=== PATIENT | female | born 1970 | race Caucasian/White ===

== ENCOUNTER 2016-10-22 15:44 | Observation (INO) | payer OTHER ==
[~2016-10-22] VITALS: Ht 165.1 cm; Wt 88.5 kg
[~2016-10-22 15:44] MED LIST: AMITIZA24 MCG PO; AUGMENTIN TAB875 MG PO; BENTYL20 MG PO; DILTIAZEM ER120 M1 PO; DULERA 200 MCG8.8 GM INH; LEVAQUIN750 MG PO; LIPITOR TAB 1010 MG PO; LISINOPRIL-HCT1 EACH PO; QVAR8.7 G1 INH; SINGULAIR10 MG PO; TESSALON PERLE100 MG PO; ZOFRAN4 MG PO
[2016-10-22 17:56] LABS: HEMOGLOBIN 12.3 gm/dl (12.3-15.3); RED BLOOD COUNT 4.12 M/UL (4.00-5.10); WHITE BLOOD COUNT 11.9 K/UL (4.5-11.0)
[2016-10-22 18:21] LABS: BUN/CREATININE RATIO 12 (0-10)
[2016-10-22] MEDS ORDERED: MOBIC7.5 MG PO (23:37)
[2016-10-22] MEDS ORDERED: HIZENTRA10 GM/50 M SQ (23:39)
[2016-10-22] MEDS ORDERED: AMITIZA24 MCG PO (23:41)
[2016-10-22] MEDS ORDERED: BENTYL 20MG TAB20 MG PO (23:42)
[2016-10-22] MEDS ORDERED: ZOFRAN 4 MG TAB4 MG PO (23:44)
[2016-10-22] MEDS ORDERED: LIBRAX PO (23:46)
[2016-10-23] MEDS ORDERED: BENADRYL 50MG C50 MG PO (00:11)
[2016-10-23] MEDS ORDERED: TYLENOL 500 MG500 MG PO (00:12)
[2016-10-23] MEDS ORDERED: XOPENEX1.25 MG/3 INH (00:13)
[2016-10-23] MEDS ORDERED: BACTRIM DS TAB1 EACH PO (00:18)
[2016-10-23] MEDS ORDERED: ZOCOR20 MG PO (00:19)
[2016-10-23] MEDS ORDERED: ZOVIRAX 200 MG200 MG PO (00:19)
[2016-10-23 05:54] LABS: HEMOGLOBIN 10.3 gm/dl (12.3-15.3); RED BLOOD COUNT 3.55 M/UL (4.00-5.10); WHITE BLOOD COUNT 8.4 K/UL (4.5-11.0)
[2016-10-23 06:08] LABS: BUN/CREATININE RATIO 16 (0-10)
[2016-10-24 06:13] LABS: HEMOGLOBIN 9.6 gm/dl (12.3-15.3); RED BLOOD COUNT 3.27 M/UL (4.00-5.10); WHITE BLOOD COUNT 6.5 K/UL (4.5-11.0)
[2016-10-24 06:32] LABS: BUN/CREATININE RATIO 13 (0-10)
[2016-10-24] MEDS ORDERED: QVAR8.7 G1 INH (23:36)
[2016-10-25] MEDS ORDERED: PRAVACHOL20 MG PO (10:44)
== END 2016-10-25 12:05 | disposition home or self-care (01) ==
LOC: ER1 15:44 → ZEROF 20:45 → MED SURG 4 20:45
PROVIDERS: Emergency Medicine; Physician Assistant Medical; ADMIT Hospitalist
DX: K85.90 Acute pancreatitis without necrosis or infection, unspecified (principal); R10.11 Right upper quadrant pain; I10 Essential (primary) hypertension; D84.9 Immunodeficiency, unspecified; I25.10 Atherosclerotic heart disease of native coronary artery without angina pectoris; G43.909 Migraine, unspecified, not intractable, without status migrainosus; J45.909 Unspecified asthma, uncomplicated; E78.5 Hyperlipidemia, unspecified; K58.9 Irritable bowel syndrome, unspecified; Z79.899 Other long term (current) drug therapy; Z87.19 Personal history of other diseases of the digestive system; Z90.49 Acquired absence of other specified parts of digestive tract; Z90.710 Acquired absence of both cervix and uterus; Z98.1 Arthrodesis status; Z88.8 Allergy status to other drugs, medicaments and biological substances; Z82.49 Family history of ischemic heart disease and other diseases of the circulatory system
CPT/HCPCS: 36415; 71020; 80053; 81001; 82150; 82728; 83540; 83550; 83605; 83690; 84484; 85025; 85027; 87040; 94640; 94664; 96361; 96365; 96375; 96376; 99285; G0378; J2270; J2405; J2543; J7030; J7050; Q9962

== ENCOUNTER 2017-02-10 17:25 | Inpatient (IN) | payer OTHER ==
[~2017-02-10] VITALS: Ht 162.6 cm; Wt 88.0 kg
[~2017-02-10 17:25] MED LIST changes: +BACTRIM DS TAB1 EACH PO; +BENADRYL 50MG C50 MG PO; +BENTYL 20MG TAB20 MG PO; +HIZENTRA10 GM/50 M SQ; +LIBRAX PO; +MOBIC7.5 MG PO; +PRAVACHOL20 MG PO; +TYLENOL 500 MG500 MG PO; +XOPENEX1.25 MG/3 INH; +ZOCOR20 MG PO; +ZOFRAN 4 MG TAB4 MG PO; +ZOVIRAX 200 MG200 MG PO
[2017-02-10] MEDS ORDERED: NEURONTIN 300300 MG PO (23:26)
[2017-02-10] MEDS ORDERED: TYLENOL W/CODEIN1 E1 PO (23:26)
[2017-02-10] MEDS ORDERED: CLARITIN10 M2 PO (23:29)
[2017-02-10] MEDS ORDERED: CREON DR 36,001 EACH PO (23:29)
[2017-02-10] MEDS ORDERED: TYLENOL 500 MG500 MG PO (23:31)
[2017-02-11 06:26] LABS: HEMOGLOBIN 10.6 gm/dl (12.3-15.3); RED BLOOD COUNT 3.7 M/UL (4.00-5.10); WHITE BLOOD COUNT 6.9 K/UL (4.5-11.0)
[2017-02-12 05:18] LABS: BUN/CREATININE RATIO 12 (0-10)
[2017-02-14 05:51] LABS: HEMOGLOBIN 10.2 gm/dl (12.3-15.3); RED BLOOD COUNT 3.62 M/UL (4.00-5.10)
[2017-02-14 05:55] LABS: WHITE BLOOD COUNT 4.5 K/UL (4.5-11.0)
[2017-02-14 06:07] LABS: BUN/CREATININE RATIO 8 (0-10)
== END 2017-02-15 00:14 | disposition home or self-care (01) | DRG 439 ==
LOC: ER1 17:25 → M/S 21:11 → ER1 22:00 → ZEROF 22:00 → M/S 22:08 → ZEROF 22:44 → ER1 02-11 00:47 → M/S 02-11 00:47
PROVIDERS: Family Medicine; ADMIT Hospitalist
DX: K85.00 Idiopathic acute pancreatitis without necrosis or infection (principal); D80.3 Selective deficiency of immunoglobulin G [IgG] subclasses; Q61.02 Congenital multiple renal cysts; K86.1 Other chronic pancreatitis; I25.10 Atherosclerotic heart disease of native coronary artery without angina pectoris; J45.909 Unspecified asthma, uncomplicated; K21.9 Gastro-esophageal reflux disease without esophagitis; K58.9 Irritable bowel syndrome, unspecified; G43.909 Migraine, unspecified, not intractable, without status migrainosus; K76.0 Fatty (change of) liver, not elsewhere classified; N20.0 Calculus of kidney; Z79.51 Long term (current) use of inhaled steroids; Z79.891 Long term (current) use of opiate analgesic; Z79.1 Long term (current) use of non-steroidal anti-inflammatories (NSAID); Z79.899 Other long term (current) drug therapy; Z88.8 Allergy status to other drugs, medicaments and biological substances; Z90.710 Acquired absence of both cervix and uterus; Z90.49 Acquired absence of other specified parts of digestive tract; Z98.1 Arthrodesis status; Z98.890 Other specified postprocedural states; Z82.49 Family history of ischemic heart disease and other diseases of the circulatory system
CPT/HCPCS: 36415; 71010; 80048; 80053; 80061; 81001; 82150; 82550; 82553; 83036; 83690; 83874; 84484; 85025; 85027; 86140; 87040; 94640; 94664; 96361; 96374; 99285; C9113; G0378; J1650; J2270; J2405; J7030; J7050; Q0163; Q9962

== ENCOUNTER 2020-11-17 01:46 | Emergency (ER) | payer BC, OTHER ==
[~2020-11-17 01:46] MED LIST changes: +CLARITIN10 M2 PO; +CREON DR 36,001 EACH PO; +LODINE CAP 300300 MG PO; +NEURONTIN 300300 MG PO; +NORCO 5-325 TA1 EACH PO; +ROXICODONE TAB 55 MG PO; +TYLENOL W/CODEIN1 E1 PO; +VIBRAMYCIN 100100 MG GT; +ZOFRAN ODT 4 MG4 MG PO
[2020-11-17 03:13] LABS: HEMOGLOBIN 12.7 gm/dl (12.3-15.3); RED BLOOD COUNT 4.39 M/UL (4.00-5.10); WHITE BLOOD COUNT 7.3 K/UL (4.5-11.0)
[2020-11-17 03:39] LABS: BUN/CREATININE RATIO 21 (0-10)
== END 2020-11-17 03:52 | disposition home or self-care (01) ==
LOC: ER1 01:46
PROVIDERS: Internal Medicine
DX: E11.9 Type 2 diabetes mellitus without complications (principal); Z90.49 Acquired absence of other specified parts of digestive tract; Z79.4 Long term (current) use of insulin; Z88.8 Allergy status to other drugs, medicaments and biological substances
CPT/HCPCS: 80053; 82962; 85025; 99284

== ENCOUNTER 2021-03-15 10:36 | Emergency (ER) | payer BC, OTHER ==
[2021-03-15 11:36] LABS: HEMOGLOBIN 13.6 gm/dl (12.3-15.3); RED BLOOD COUNT 4.56 M/UL (4.00-5.10); WHITE BLOOD COUNT 8.7 K/UL (4.5-11.0)
[2021-03-15 11:58] LABS: BUN/CREATININE RATIO 20 (0-10)
[2021-03-15] MEDS ORDERED: CEPHALEXIN500 M1 PO (15:05)
== END 2021-03-15 15:42 | disposition home or self-care (01) ==
LOC: ER1 10:36
PROVIDERS: Physician Assistant
DX: J02.9 Acute pharyngitis, unspecified (principal); R19.7 Diarrhea, unspecified; N39.0 Urinary tract infection, site not specified; Z20.822 Contact with and (suspected) exposure to COVID-19; I10 Essential (primary) hypertension; E78.5 Hyperlipidemia, unspecified; E11.9 Type 2 diabetes mellitus without complications; Z90.710 Acquired absence of both cervix and uterus; Z88.8 Allergy status to other drugs, medicaments and biological substances
CPT/HCPCS: 80053; 81001; 85025; 87081; 87086; 87880; 96372; 99284; J2405; U0002

== ENCOUNTER → 2021-03-30 | Outpatient (CLI) | payer BC, OTHER ==
[~2021-03-30] MED LIST changes: +CEPHALEXIN500 M1 PO
[2021-03-30 14:57] LABS: BUN/CREATININE RATIO 17 (0-10)
[2021-03-31 12:15] LABS: RHEUMATOID ARTHRITIS FACTOR <10.0 IU/mL (0.0-13.9)
== END ==
LOC: LAB 13:00
PROVIDERS: Family Medicine
DX: Z12.31 Encounter for screening mammogram for malignant neoplasm of breast (principal); M13.0 Polyarthritis, unspecified; R31.29 Other microscopic hematuria; M79.642 Pain in left hand; M79.641 Pain in right hand
CPT/HCPCS: 36415; 73130; 80053; 81001; 84550; 86038; 86200; 86431; 87086

== ENCOUNTER → 2021-04-14 | Outpatient (CLI) | payer BC, OTHER | LOC: LBRF 13:17 | DX: N39.0 Urinary tract infection, site not specified (principal) | CPT/HCPCS: 87086 ==

== ENCOUNTER → 2021-05-09 | Outpatient (CLI) | payer BC, OTHER | LOC: CT 10:20 | DX: N39.0 Urinary tract infection, site not specified (principal); R31.9 Hematuria, unspecified; N28.89 Other specified disorders of kidney and ureter; Z87.442 Personal history of urinary calculi; K59.00 Constipation, unspecified | CPT/HCPCS: 36415; 82565; Q9967 ==

== ENCOUNTER → 2021-06-09 | Outpatient (CLI) | payer BC, OTHER ==
[2021-06-10 08:14] LABS: VITAMIN D, 25-HYDROXY 44.5 ng/mL (30.0-100.0)
[2021-06-14 17:09] LABS: VITAMIN E(ALPHA TOCOPHEROL) 11.4 mg/L (7.0-25.1); VITAMIN E(GAMMA TOCOPHEROL) 1.4 mg/L (0.5-5.5)
== END ==
LOC: MAMO 10:15
PROVIDERS: Physician Assistant Medical
DX: Z12.31 Encounter for screening mammogram for malignant neoplasm of breast (principal); K86.81 Exocrine pancreatic insufficiency
CPT/HCPCS: 36415; 77063; 77067; 84446; 84590

== ENCOUNTER → 2021-07-11 | Outpatient (CLI) | payer BC, OTHER ==
[2021-07-12 10:14] LABS: RHEUMATOID ARTHRITIS FACTOR <10.0 IU/mL (<14.0)
== END ==
LOC: LAB 09:22
PROVIDERS: Nurse Practitioner Family
DX: M25.50 Pain in unspecified joint (principal); R30.0 Dysuria; M79.10 Myalgia, unspecified site
CPT/HCPCS: 36415; 82550; 82728; 83520; 84439; 84443; 85652; 86140; 86200; 86431

== ENCOUNTER → 2021-07-27 | Outpatient (CLI) | payer BC | LOC: EXRD 15:10 | DX: R05.9 Cough, unspecified (principal); R50.9 Fever, unspecified; R35.0 Frequency of micturition | CPT/HCPCS: 71046 ==

== ENCOUNTER 2021-09-20 17:04 | Emergency (ER) | payer BC ==
[2021-09-20 18:35] LABS: HEMOGLOBIN 13.8 gm/dl (12.3-15.3); RED BLOOD COUNT 4.75 M/UL (4.00-5.10); WHITE BLOOD COUNT 10.5 K/UL (4.5-11.0)
[2021-09-20 19:02] LABS: BUN/CREATININE RATIO 17 (0-10)
[2021-09-20] MEDS ORDERED: MIRALAX17 GM PO (19:58)
[2021-09-20] MEDS ORDERED: IBUPROFEN600 MG PO (19:58)
== END 2021-09-20 20:19 | disposition home or self-care (01) ==
LOC: ER1 17:04
PROVIDERS: Physician Assistant Medical
DX: N20.0 Calculus of kidney (principal); K59.00 Constipation, unspecified
CPT/HCPCS: 80053; 81001; 85025; 96372; 99284; J1885

== ENCOUNTER 2021-10-11 14:10 | Emergency (ER) | payer BC ==
[~2021-10-11 14:10] MED LIST changes: +IBUPROFEN600 MG PO; +MIRALAX17 GM PO
[2021-10-11 15:17] LABS: HEMOGLOBIN 12.5 gm/dl (12.3-15.3); RED BLOOD COUNT 4.29 M/UL (4.00-5.10); WHITE BLOOD COUNT 9.3 K/UL (4.5-11.0)
== END 2021-10-11 18:30 | disposition home or self-care (01) ==
LOC: ER1 14:10
PROVIDERS: Physician Assistant Medical
DX: U07.1 COVID-19 (principal); J40 Bronchitis, not specified as acute or chronic; R31.9 Hematuria, unspecified; R10.9 Unspecified abdominal pain; E11.9 Type 2 diabetes mellitus without complications; I10 Essential (primary) hypertension; Z88.8 Allergy status to other drugs, medicaments and biological substances
CPT/HCPCS: 71046; 80053; 81001; 82550; 82553; 83605; 83874; 84484; 85025; 85379; 87040; 87086; 93005; 94664; 94760; 99284

== ENCOUNTER → 2021-10-13 | Outpatient (CLI) | payer BC | LOC: EROP 10:42 | DX: U07.1 COVID-19 (principal); Z23 Encounter for immunization; I10 Essential (primary) hypertension; E11.9 Type 2 diabetes mellitus without complications | CPT/HCPCS: M0247; Q0247 ==